=== PATIENT | male | born 1995 | race Caucasian/White ===

== ENCOUNTER 2016-11-01 19:23 | Emergency (ER) | payer OTHER ==
[~2016-11-01 19:23] MED LIST: BACTRIM DS TABL1 TA1 PO; BACTRIM DS TABL1 TA2 PO; CEPHALEXIN500 M1 PO; CLEOCIN HCL300 M1 PO; CLEOCIN PO; CLINDAMYCIN HC300 MG PO; DENTAL BALLS TOP; DICLOFENAC PO; DIFLUCAN100 MG PO; DOXYCYCLINE HY100 M3 PO; ERYTHROMYCIN500 MG PO; IBUPROFEN PO; KEFLEX500 MG PO; LORTAB 5/500 TA1 TA1 PO; LORTAB 7.5-5001 TAB PO; NAPROSYN250 M1 PO; NO MEDICATIONS; NORCO1 TAB 10/3 DOB; ROBAXIN PO; TYLENOL #3 PO; ULTRACET TABLET1 TAB PO; ULTRAM PO; VIBRAMYCIN100 M1 PO; VOLTAREN50 MG PO; VOLTAREN75 MG PO; [UNRECOGNIZED DRUG - OTHER] PO
== END 2016-11-01 20:08 | disposition home or self-care (01) ==
LOC: CFTX 19:23
DX: L73.9 Follicular disorder, unspecified (principal); B35.4 Tinea corporis; Z98.890 Other specified postprocedural states; F17.210 Nicotine dependence, cigarettes, uncomplicated; Z88.0 Allergy status to penicillin; Z88.1 Allergy status to other antibiotic agents
CPT/HCPCS: 82947; 99282

== ENCOUNTER 2016-12-08 18:30 | Emergency (ER) | payer OTHER | END 2016-12-08 20:27 | disposition home or self-care (01) | LOC: CFTX 18:30 → CED 18:30 → CFTX 20:11 | DX: K04.7 Periapical abscess without sinus (principal); F17.210 Nicotine dependence, cigarettes, uncomplicated; Z88.0 Allergy status to penicillin; Z88.1 Allergy status to other antibiotic agents | CPT/HCPCS: 96372; 99283; J1885 ==